=== PATIENT | male | born 1965 | race African-American/Black ===

== ENCOUNTER 2018-06-25 14:40 | Emergency (ER) | payer OTHER ==
[~2018-06-25] VITALS: Ht 170.2 cm; Wt 81.6 kg
[2018-06-25 16:20] VITALS: BP 128/70
== END 2018-06-25 16:20 | disposition home or self-care (01) ==
LOC: ED 14:40
DX: S93.401A Sprain of unspecified ligament of right ankle, initial encounter (principal); X50.1XXA Overexertion from prolonged static or awkward postures, initial encounter
CPT/HCPCS: 99283

== ENCOUNTER 2020-10-07 10:12 | Emergency (ER) | payer OTHER ==
[~2020-10-07] VITALS: Ht 170.2 cm; Wt 81.6 kg
[2020-10-07 10:20] VITALS: TEMP 98.7
[2020-10-07 11:04] LABS: PLATELET COUNT 231 K/uL (142-355)
[2020-10-07 11:11] LABS: POTASSIUM 4.8 mmol/L (3.6-5.2); SODIUM 135 mmol/L (136-145)
[2020-10-07 11:20] LABS: PARTIAL THROMBOPLASTIN TIME 28.3 SECONDS (24.5-33.6)
[2020-10-07 11:44] VITALS: BP 118/67
== END 2020-10-07 11:54 | disposition home or self-care (01) ==
LOC: ED 10:12
PROVIDERS: Hospitalist
DX: U07.1 COVID-19 (principal); J06.9 Acute upper respiratory infection, unspecified; R07.89 Other chest pain
CPT/HCPCS: 80053; 82550; 83880; 84484; 85027; 85610; 85730; 87502; 87635; 93005; 99283; U0003